=== PATIENT | female | born 1950 | race Caucasian/White ===

== ENCOUNTER 2017-02-23 09:07 | Outpatient (CLI) | payer MEDICARE | END 2017-02-23 09:08 | disposition home or self-care (01) | DX: N98.1 Hyperstimulation of ovaries (principal); M94.9 Disorder of cartilage, unspecified; Z12.31 Encounter for screening mammogram for malignant neoplasm of breast ==

== ENCOUNTER 2017-02-23 09:08 | Outpatient (CLI) | payer MEDICARE | END 2017-02-23 09:09 | disposition home or self-care (01) | DX: Z12.31 Encounter for screening mammogram for malignant neoplasm of breast (principal) ==

== ENCOUNTER 2017-02-26 09:32 | Outpatient (CLI) | payer MEDICARE | END 2017-02-26 09:33 | disposition home or self-care (01) | DX: Z13.820 Encounter for screening for osteoporosis (principal); N98.1 Hyperstimulation of ovaries; M94.9 Disorder of cartilage, unspecified ==